=== PATIENT | male | born 1945 | race Caucasian/White ===

== ENCOUNTER → 2021-08-31 | Day surgery (SDC) | payer MEDICARE, OTHER ==
[~2021-08-31] MED LIST: Glycopyrrolate 0.2 MG/ML 2 ML SDV ONE; Phenylephrine 1% 10 MG/ML SDV ONE; Propofol 200 MG/20 ML SDV ONE; fentaNYL 100 MCG/2 ML SDV ONE
[2021-08-31] MEDS: Lactated Ringers 1,000 ML IV SCH (09:08)
== END ==
LOC: CC.SDS 08:43
PROVIDERS: ATTEND Family Medicine
DX: Z12.11 Encounter for screening for malignant neoplasm of colon (principal); K57.30 Diverticulosis of large intestine without perforation or abscess without bleeding; F17.210 Nicotine dependence, cigarettes, uncomplicated; Z90.49 Acquired absence of other specified parts of digestive tract; Z98.890 Other specified postprocedural states; Z79.899 Other long term (current) drug therapy; Z86.010 Personal history of colon polyps
CPT/HCPCS: J2370; J2704; J3010; J3490; J7120